=== PATIENT | female | born 1995 | race Hispanic/Latino ===

== ENCOUNTER 2024-06-25 03:59 | Inpatient (IN) | payer MEDICAID, OTHER, SELFPAY ==
[2024-06-25 04:28] VITALS: BMI 28.3
[2024-06-25] MEDS ORDERED: Ondansetron PF 4 MG/2 ML Vial IVP PRN ×2 (04:49→15:31)
[2024-06-25] MEDS ORDERED: Promethazine HCl 25 MG/ML VIAL IM PRN (04:49)
[2024-06-25] MEDS ORDERED: hydrALAZINE 20 MG/ML VIAL SLOW IVP PRN ×2 (04:49→15:31)
[2024-06-25] MEDS ORDERED: Lidocaine 1% (PF) 30 ML VIAL SC PRN (04:49)
[2024-06-25] MEDS ORDERED: Carboprost 250 MCG/ML AMP IM PRN (04:50)
[2024-06-25] MEDS ORDERED: Diphenoxylate HCl/Atropine Tablet PO PRN (04:50)
[2024-06-25] MEDS ORDERED: Ibuprofen 800 MG TAB PO PRN (04:50)
[2024-06-25] MEDS ORDERED: Acetaminophen 500 MG TAB PO PRN (04:50)
[2024-06-25] MEDS ORDERED: Misoprostol 200 MCG TAB PR PRN (04:50)
[2024-06-25] MEDS ORDERED: Methylergonovine 0.2 MG/ML VIAL IM PRN (04:50)
[2024-06-25] MEDS ORDERED: Lactated Ringer's 1,000 ML IV SCH (05:00)
[2024-06-25] MEDS ORDERED: Oxytocin 30 units/NS 500 ML 500 ML IV SCH ×2 (05:00)
[2024-06-25] MEDS: Famotidine 20 MG TAB PO SCH (05:24)
[2024-06-25 05:34] LABS: Hemoglobin 11.4 g/dL (12.0-15.5); Mean Corpuscular HGB CONC 34.5 g/dL (32.0-36.0); Mean Corpuscular Hemoglobin 31.4 pg (27.0-33.0); Mean Corpuscular Volume 90.9 fL (81.6-98.3); Mean Platelet Volume 10.2 fL (7.4-10.4); Platelet Count 287 10x3/uL (150-450); RBC Distribution Width 14.2 % (11.5-14.5); Red Blood Cell (RBC) Count 3.63 10x6/uL (3.90-5.03); White Blood Cell (WBC) Count 12.6 10x3/uL (3.5-10.5)
[2024-06-25 06:05] LABS: HBsAg Index 0.19 S/CO (0-0.99); Hep B Surf Ag - L&D Non-Reactive S/CO (NonReactive)
[2024-06-25 06:06] LABS: Syphilis Antibody Nonreactive (Nonreactive); Syphilis Antibody Index 0.04 S/CO (<1.00 Non-Reactive)
[2024-06-25] MEDS: Oxytocin 30 units/NS 500 ML 500 ML IV SCH (08:56)
[2024-06-25] MEDS: fentaNYL/Ropivacaine Epidural 100 ML ONE (08:57)
[2024-06-25 09:41] LABS: HIV (1/2) Antibody/Antigen Non-Reactive (NonReactive); HIV 1/2 INDEX 0.07 S/CO (<1.00)
[2024-06-25] MEDS ORDERED: diphenhydrAMINE 25 MG CAP PO PRN (15:31)
[2024-06-25] MEDS ORDERED: Milk Of Magnesia 30 ML UDCUP PO PRN (15:31)
[2024-06-25] MEDS ORDERED: Lanolin Ointment 7 GM TUBE TOP PRN (15:31)
[2024-06-25] MEDS ORDERED: HYDROcodone/Acetaminophen 5/325 mg Tablet PO PRN (15:31)
[2024-06-25] MEDS ORDERED: Bisacodyl 10 MG SUPP PR PRN (15:31)
[2024-06-25] MEDS: Ferrous Sulfate 325 MG TAB PO SCH (16:48)
[2024-06-25] MEDS: Ibuprofen 800 MG TAB PO SCH (17:19)
[2024-06-25] MEDS: Docusate 100 MG CAP PO SCH (23:30)
[2024-06-26 05:20] VITALS: TEMP 98.1
[2024-06-26] MEDS: Boostrix 0.5 ML (Tdap) VIAL (>/=7 yrs of age) IM ONE (07:14)
[2024-06-26] MEDS: Prenatal Vitamin 1 TAB PO SCH (07:31)
[2024-06-26] MEDS: Benzocaine-Menthol 82.5 ML CAN TOP PRN (07:35)
[2024-06-26 11:27] VITALS: BP 109/66
== END 2024-06-26 17:35 | disposition home or self-care (01) | DRG 807 ==
LOC: CSHLD/OP 03:59 → CSHLD 04:49 → CSHPP 15:51
PROVIDERS: ADMIT Family Medicine; ATTEND Family Medicine
PROC: 10E0XZZ Delivery of Products of Conception, External Approach (ICD-10-PCS; principal; 2024-06-25)
PROC: 0KQM0ZZ Repair Perineum Muscle, Open Approach (ICD-10-PCS; 2024-06-25)
DX: O42.02 Full-term premature rupture of membranes, onset of labor within 24 hours of rupture (principal); Z37.0 Single live birth; Z3A.38 38 weeks gestation of pregnancy; O70.1 Second degree perineal laceration during delivery
CPT/HCPCS: 36416; 51702; 85027; 86762; 86780; 86850; 86900; 86901; 87340; 87389; 99285; J2590